=== PATIENT | female | born 1975 | race Hispanic/Latino ===

== ENCOUNTER 2019-04-21 22:26 | Emergency (ER) | payer OTHER ==
[2019-04-21] MEDS ORDERED: ACETAMINOPHEN EXTRA STRENGTH 500 MG TABLET ONE (22:43)
== END 2019-04-22 00:02 | disposition home or self-care (01) ==
LOC: EDH 22:26
DX: J00 Acute nasopharyngitis [common cold] (principal); R50.9 Fever, unspecified
CPT/HCPCS: 87804; 87880